=== PATIENT | male | born 1990 | race Two or more races ===

== ENCOUNTER 2017-01-16 11:59 | Emergency (ER) | payer OTHER ==
[~2017-01-16] VITALS: Ht 175.3 cm; Wt 86.4 kg
[2017-01-16] MEDS ORDERED: FLUO-191 PO (12:07)
[2017-01-16 12:35] VITALS: BP 120/74
[2017-01-16] MEDS ORDERED: KETOROLAC TROMETHAMINE 60 MG/2 ML VIAL IM ONE (13:00)
[2017-01-16] MEDS ORDERED: ONDANSETRON HCL 4 MG/2 ML VIAL IM ONE (13:00)
== END 2017-01-16 14:07 | disposition home or self-care (01) ==
LOC: EMS 12:01
DX: R51 Headache (principal); H53.8 Other visual disturbances; R11.10 Vomiting, unspecified
CPT/HCPCS: 96372; 99284; J1885; J2405